=== PATIENT | male | born 1980 ===

== ENCOUNTER 2021-08-09 13:15 | Inpatient (IN) | payer MEDICARE, OTHER ==
[~2021-08-09] VITALS: Ht 180 cm; Wt 104.5 kg
[2021-08-09 17:30] VITALS: BP 156/96
[2021-08-09] MEDS ORDERED: ANTACID SUSP 30 ML UDC (MYLANTA) PO PRN (18:30)
[2021-08-09] MEDS ORDERED: ENOXAPARIN 40 MG/0.4 ML (LOVENOX) SYR SC SCH (18:30)
[2021-08-09] MEDS ORDERED: MELATONIN 3 MG TABLET PO PRN (18:30)
[2021-08-09] MEDS ORDERED: ACETAMINOPHEN 325 MG TABLET PO PRN (18:30)
[2021-08-09] MEDS ORDERED: polyethylene glycoL POWDER 17 GM (MIRALAX) PACK PO PRN (18:30)
[2021-08-09] MEDS ORDERED: ONDANSETRON 4 MG/2 ML (SDV) Z0FRAN IV PRN (18:30)
[2021-08-09] MEDS ORDERED: ONDANSETRON 4 MG (ZOFRAN) ORAL DISSOLVE TAB PO PRN (18:30)
[2021-08-09] MEDS: diphenhydrAMINE 25 MG TAB (BENADRYL) PO PRN ×2 (18:54→20:30)
[2021-08-09] MEDS ORDERED: CYCLOBENZAPRINE 10 MG (FLEXERIL) TAB PO PRN (19:15)
[2021-08-09] MEDS ORDERED: busPIRone 15 MG (BUSPAR) TABLET PO PRN (19:15)
[2021-08-09 20:00] VITALS: BP 143/98
[2021-08-09] MEDS ORDERED: toPIRamate 100 MG (TOPAMAX) TAB PO ONE (20:09)
[2021-08-09] MEDS ORDERED: DULoxetine 30 MG (CYMBALTA) CAP ONE (20:09)
[2021-08-09] MEDS ORDERED: DIAZEPAM 5 MG (VALIUM) TABLET ONE (20:10)
[2021-08-09] MEDS ORDERED: GABAPENTIN 600 MG (NEURONTIN) TAB ONE (20:10)
[2021-08-09] MEDS ORDERED: LACTATED RINGERS 1,000 ML IV ONE (20:14)
[2021-08-09] MEDS: LACTATED RINGERS 1,000 ML IV SCH (20:30)
[2021-08-09] MEDS: DIAZEPAM 5 MG (VALIUM) TABLET PO SCH (20:30)
[2021-08-09] MEDS: MEROPENEM 500 MG/NS 100 ML IVPB IV SCH ×2 (20:30)
[2021-08-09] MEDS: toPIRamate 100 MG (TOPAMAX) TAB PO SCH (20:31)
[2021-08-09] MEDS: DULoxetine 30 MG (CYMBALTA) CAP PO SCH (20:42)
[2021-08-09] MEDS ORDERED: GABAPENTIN 600 MG (NEURONTIN) TAB PO SCH (21:00)
[2021-08-09] MEDS: inSUlin ASPART (NovoLOG) 1 UNIT/0.01 ML (CHARGE PER UNIT) SC SCH (21:07)
[2021-08-09] MEDS ORDERED: NICOTINE 14 MG (NICODERM) PATCH TD ONE (21:37)
[2021-08-09] MEDS ORDERED: NICOTINE 2 MG GUM (NICORETTE) PO PRN (22:00)
[2021-08-09] MEDS ORDERED: diphenhydrAMINE 50 MG/ML INJ (BENADRYL) ONE (22:02)
[2021-08-09] MEDS: diphenhydrAMINE 50 MG/ML INJ (BENADRYL) IVP PRN (22:07)
[2021-08-09] MEDS: NICOTINE 14 MG (NICODERM) PATCH TD SCH (22:08)
[2021-08-09 22:23] LABS: CLARITY,URINE CLEAR; COLOR,URINE YELLOW; GLUCOSE, URINE (UA) NEGATIVE (NEGATIVE); KETONES,URINE NEGATIVE (NEGATIVE); LEUKOCYTE ESTERASE ,URINE TRACE (NEGATIVE); NITRITE,URINE POSITIVE (NEGATIVE); PROTEIN,URINE NEGATIVE (NEGATIVE)
[2021-08-09 22:32] LABS: BACTERIA,URINE LARGE /HPF; BILIRUBIN,URINE 1+ (NEGATIVE)
[2021-08-10 00:01] VITALS: BP 125/77
[2021-08-10 03:34] VITALS: BP 139/89
[2021-08-10] MEDS: MEROPENEM 500 MG/NS 100 ML IVPB IV SCH ×4 (03:34→08:38)
[2021-08-10] MEDS: diphenhydrAMINE 50 MG/ML INJ (BENADRYL) IVP PRN ×2 (04:05→09:18)
[2021-08-10 05:39] LABS: BASOPHILS % (AUTO) 1 % (0-10); EOSINOPHILS # (AUTO) 0.2 10^3/uL (0.0-0.3); EOSINOPHILS % (AUTO) 3 % (0-10); HEMATOCRIT 41 % (40-54); HEMOGLOBIN 12.1 g/dL (13.3-17.7); LYMPHOCYTES # (AUTO) 2.5 10^3/uL (1.0-4.0); LYMPHOCYTES % (AUTO) 39 % (12-44); MEAN CORPUSCULAR HEMOGLOBIN 22 pg (25-34); MEAN CORPUSCULAR HGB CONC 30 g/dL (32-36); MEAN CORPUSCULAR VOLUME 73 fL (80-99); MEAN PLATELET VOLUME 9.7 fL (9.0-12.2); MONOCYTES # (AUTO) 0.5 10^3/uL (0.0-1.0); MONOCYTES % (AUTO) 7 % (0-12); NEUTROPHILS # (AUTO) 3.2 10^3/uL (1.8-7.8); NEUTROPHILS % (AUTO) 50 % (42-75); PLATELET COUNT 220 10^3/uL (130-400); WHITE BLOOD COUNT 6.3 10^3/uL (4.3-11.0)
[2021-08-10 05:53] LABS: POTASSIUM 3.8 MMOL/L (3.6-5.0)
[2021-08-10 05:54] LABS: CALCIUM 8.6 MG/DL (8.5-10.1)
[2021-08-10 05:58] LABS: CREATININE SERUM 0.85 MG/DL (0.60-1.30)
[2021-08-10] MEDS: inSUlin ASPART (NovoLOG) 1 UNIT/0.01 ML (CHARGE PER UNIT) SC SCH ×2 (05:59→11:00)
[2021-08-10 08:00] VITALS: BP 145/88
[2021-08-10] MEDS: DIAZEPAM 5 MG (VALIUM) TABLET PO SCH ×2 (08:37→12:59)
[2021-08-10] MEDS: diphenhydrAMINE 25 MG TAB (BENADRYL) PO PRN (08:37)
[2021-08-10] MEDS: DULoxetine 30 MG (CYMBALTA) CAP PO SCH (08:37)
[2021-08-10] MEDS: toPIRamate 100 MG (TOPAMAX) TAB PO SCH (08:37)
[2021-08-10] MEDS: NICOTINE 14 MG (NICODERM) PATCH TD SCH (08:38)
[2021-08-10] MEDS: GABAPENTIN 300 MG (NEURONTIN) CAP PO SCH ×2 (08:38→12:59)
[2021-08-10] MEDS: LACTATED RINGERS 1,000 ML IV SCH (08:39)
[2021-08-10] MEDS ORDERED: ERTAPENEM (NON-FORMULARY) 1,000 MG in NS (IVPB) 50 ML IV SCH (09:00)
[2021-08-10 11:25] VITALS: BP 159/103
[2021-08-10 11:39] LABS: AMPHETAMINE SCREEN, URINE NEGATIVE (NEGATIVE); BENZODIAZEPINES SCREEN URINE POSITIVE (NEGATIVE); CANNABINOID SCREEN, URINE POSITIVE (NEGATIVE); COCAINE SCREEN URINE NEGATIVE (NEGATIVE); METHAMPHETAMINE SCREEN URINE S NEGATIVE (NEGATIVE)
[2021-08-10 11:40] LABS: BARBITURATE SCREEN URINE NEGATIVE (NEGATIVE); METHADONE STAT NEGATIVE (NEGATIVE); OPIATE SCREEN URINE NEGATIVE (NEGATIVE); OXYCODONE STAT POSITIVE (NEGATIVE); PROPOXYPHENE STAT NEGATIVE (NEGATIVE); TRICYCLIC ANTIDEPRESSANTS SCRE NEGATIVE (NEGATIVE)
[2021-08-10] MEDS ORDERED: ERTAPENEM 1000 MG (INVanz) VIAL IM NR (13:37)
[2021-08-10] MEDS ORDERED: LIDOCAINE 1% INJ 20 ML VIAL IJ NR (13:38)
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
--- NOTE | 2021-08-10 13:51 | Discharge Summary ---
Discharge Summary Instructions for Patient Via [facility], Assessment/Instructions Take medications as prescribed. You are being set up with home health for antibiotics. Follow up with your PCP. Return with intractable pain, nausea, vomiting, or if you feel like you are getting worse. Physician to follow Patient: Wei Discharge Diet for Home: No Restrictions Hospital Course Date of Admission: Aug 09, 2021 at 16:47 Admission Diagnosis : Multi-drug resistant UTI Family Physician/Provider: Jg Teran MD Date of Discharge: 08/10/21 Discharge Diagnosis: Multi-drug resistant UTI Hospital Course: Karlos Busby is a 41 year old male who was admitted with ESBL E coli UTI. He was started on IV Meropenem. He was set up with home health care for IM Ertapenem for a total one week antibiotic course. He was given his first dose of Ertapenem prior to discharge. He should follow up with Dr. Carvajal in a week or two. Labs and Pending Lab Test: Laboratory Tests 08/09/21 20:51: Glucometer 127H 08/09/21 22:02: Urine Color YELLOW, Urine Clarity CLEAR, Urine pH 6.0, Urine Specific [place] >=1.030, Urine Protein NEGATIVE, Urine Glucose (UA) NEGATIVE, Urine Ketones NEGATIVE, Urine Nitrite POSITIVEH, Urine Bilirubin 1+H, Urine Urobilinogen 0.2, Urine Leukocyte Esterase TRACEH, Urine RBC (Auto) NEGATIVE, Urine RBC NONE, Urine WBC 5-10H, Urine Squamous Epithelial Cells NONE, Urine Renal Epithelial Cells NONE, Urine Crystals NONE, Urine Bacteria LARGEH, Urine Casts NONE, Urine Mucus MODERATEH, Urine Culture Indicated YES 08/10/21 05:30: White Blood Count 6.3, Red Blood Count 5.57H, Hemoglobin 12.1L, Hematocrit 41, Mean Corpuscular Volume 73L, Mean Corpuscular Hemoglobin 22L, Mean Corpuscular Hemoglobin Concent 30L, Red Cell Distribution Width 16.7H, Platelet Count 220, Mean Platelet Volume 9.7, Immature Granulocyte % (Auto) 0, Neutrophils (%) (Auto) 50, Lymphocytes (%) (Auto) 39, Monocytes (%) (Auto) 7, Eosinophils (%) (Auto) 3, Basophils (%) (Auto) 1, Neutrophils # (Auto) 3.2, Lymphocytes # (Auto) 2.5, Monocytes # (Auto) 0.5, Eosinophils # (Auto) 0.2, Basophils # (Auto) 0.0, Immature Granulocyte # (Auto) 0.0, Sodium Level 135, Potassium Level 3.8, Chloride Level 105, Carbon Dioxide Level 19L, Anion Gap 11, Blood Urea Nitrogen 9, Creatinine 0.85, Estimat Glomerular Filtration Rate 113, BUN/Creatinine Ratio 11, Glucose Level 117H, Calcium Level 8.6 08/10/21 11:25: Glucometer 112H Microbiology 08/09/21 Urine Culture - Preliminary, Resulted Gram Negative Niraj Patient Allergies: Coded Allergies: Sulfa (Sulfonamide Antibiotics) (Verified Allergy, Intermediate, Hives, 08/09/21) Home Health Need/Face to Face Date of Face to Face: Aug 10, 2021 Clinical Findings: Unsteady gait I have seen Pt [id number]: Yes Discharged To: Home Diagnosis/Conditions: Multi-drug resistant UTI Problems/Diagnosis/Condition: (1) Infection due to multidrug resistant organism, newly diagnosed (2) UTI (urinary tract infection) Patient is Homebound due to: [place] fall risk due to instabilty Homebound Status Due to the above stated illness, injury or surgical procedure (medical condition or diagnosis) and associated clinical findings, the patient is homebound because of his/her inability to leave home except with aid of a supportive device and/or person AND leaving the home requires a considerable and taxing effort or is medically contraindicated. Pt req the following assistanc: Aid of another person Home Health Nursing Orders Home Health Services Order: Nursing Services Certify Stmt I certify that this patient is under my care and that I, a nurse practitioner or a physician; a contract assistant working with me, had a face to face encounter that - meets the physician face to face encounter requirements with this patient as dated. Discharge Physical Exam General: Alert, No Acute Distress, Other (obese) Lungs: Clear to Auscultation, Normal Air Movement Heart: Regular Rate, No Murmurs Abdomen: Normal Bowel Sounds, Soft, No Tenderness Extremities: No Edema, No Tenderness/Swelling Skin: No Significant Lesion Neuro: Normal Speech, Normal Tone Psych/Mental Status: Mental Status NL, Mood NL CLAIRE QUICK MD Aug 10, 2021 13:43
--- NOTE | 2021-08-10 13:54 | Occ Therapy Progress Note ---
Therapy Progress Note OT orders received. Pt laying in bed upon OT arrival. OT educated pt on purpose and benefit of OT, he verbalized understanding, states he has no difficulties with ADLs and mobility at this time. OT encouraged pt to participate in evaluation, but he refused, stating he just needs his antibiotic so he can go home. OT informed pt she was unable to provide medications, but would let his nurse know. Pt again states he just needs his antibiotics so he can get out of her, and he has already called someone to come get him. Pt refused OT evaluation at this time. OT will attempt evaluation tomorrow if pt is still admitted. 1, refusal [id number] PETER YANEZ OT Aug 10, 2021 13:54
[2021-08-10] MEDS ORDERED: ERTA1VIA4 IJ (13:58)
[2021-08-10] MEDS ORDERED: LIDO10VI IJ (13:58)
[2021-08-11] MEDS ORDERED: NF-FOSFPKT PO (10:10)
[2021-08-12] MEDS ORDERED: NF-FOSFPKT PO (10:09)
== END 2021-08-10 13:36 | disposition home health service (06) | DRG 690 ==
LOC: 4TH 16:47
PROVIDERS: ADMIT Internal Medicine; ATTEND Internal Medicine
DX: N39.0 Urinary tract infection, site not specified (principal); Z16.12 Extended spectrum beta lactamase (ESBL) resistance; B96.20 Unspecified Escherichia coli [E. coli] as the cause of diseases classified elsewhere
CPT/HCPCS: 36415; 80048; 80306; 81000; 82947; 85025; 87077; 87088; 87184; 87186